=== PATIENT | male | born 1975 | race Caucasian/White ===

== ENCOUNTER 2020-03-13 10:28 | Day surgery (SDC) | payer OTHER ==
[~2020-03-13] VITALS: Ht 177.8 cm; Wt 93.4 kg
[2020-03-13 11:12] VITALS: BP 123/77
[2020-03-13 19:33] VITALS: BP 116/75
== END 2020-03-13 15:55 ==
LOC: GI 10:28 → OR 11:00 → GI 11:00
PROVIDERS: ATTEND Internal Medicine Gastroenterology
DX: K59.09 Other constipation (principal); K64.8 Other hemorrhoids; Z85.048 Personal history of other malignant neoplasm of rectum, rectosigmoid junction, and anus
CPT/HCPCS: 45378; J1200; J1610; J2250; J2310; J3010; J3490